=== PATIENT | female | born 1970 | race Caucasian/White ===

== ENCOUNTER 2024-09-02 19:27 | Emergency (ER) | payer BC ==
[~2024-09-02] VITALS: Ht 175.3 cm; Wt 90.7 kg
--- NOTE | 2024-09-02 19:40 | ERN ---
ED Note History of Present Illness Stated Complaint: ALLERGIC REACTION,SOB Chief Complaint: Allergic Reaction Time Seen by MD: 19:35 Dictation: PATIENT IS A 54-YEAR-OLD COMING IN TODAY WITH DIARRHEA CRAMPING AND STATES SHE IS HAVING A AN ALLERGIC REACTION TO MACROB[facility] THAT SHE WAS PRESCRIBED ON A TELE HEALTH VISIT THIS AFTERNOON FOR URINARY TRACT INFECTION. NO RASH NO SHORTNESS A BREATH AND NO ANGIOEDEMA. Allergies: Coded Allergies: tetracycline (Unverified Allergy, Unknown, 07/31/24) Past Medical History Past Medical History: GERD, Kidney Stone, Migraines Additional Past Medical Hx: MITRAL VALVE PROLAPSE NO SX Surgical History: BTL History: Not Applicable RN Note Reviewed/Agreed w/PFSH: Yes Review of System Dictation CONSTITUTIONAL: NEGATIVE EXCEPT FOR HPI HEAD/FACE: NEGATIVE EXCEPT FOR HPI EENT: NEGATIVE EXCEPT FOR HPI RESPIRATORY: NEGATIVE EXCEPT FOR HPI GASTROINTESTINAL/ABDOMINAL: NEGATIVE EXCEPT FOR HPI DIARRHEA GENITOURINARY: NEGATIVE EXCEPT FOR HPI MUSCULOSKELETAL: NEGATIVE EXCEPT FOR HPI INTEGUMENTARY: NEGATIVE EXCEPT FOR HPI NEUROLOGICAL/PSYCH: NEGATIVE EXCEPT FOR HPI HEMATOLOGIC/LYMPHATIC: NEGATIVE EXCEPT FOR HPI ALL SYSTEMS NEGATIVE, EXCEPT NOTED ABOVE. 13 POINT REVIEW OF SYSTEMS ASSESSED AND ALL NEGATIVE EXCEPT FOR ABOVE. Initial Vital Sign VS Vital Signs Date Time Temp Pulse Resp B/P (MAP) Pulse Ox O2 Delivery O2 Flow Rate FiO2 09/02/24 19:29 28 Room Air 09/02/24 21:00 98.4 69 100 0 21 Physical Exam Dictation VITAL SIGNS REVIEWED GENERAL APPEARANCE: ALERT, ORIENTED X 3, ANXIOUS ACUTE DISTRESS, WELL DEVELOPED, NOURISHED. HEAD AND FACE: NON-TRAUMATIC. EYES: PERRL, PINK CONJUNCTIVAS, EYELID NO TRAUMA, ANTERIOR CHAMBER WITH ARCUS SENILIS. EARS: PINNAS INTACT AND NO SIGNS OF TRAUMA OR ERYTHEMA EAR CANALS CLEAR AND NO DISCHARGE TM NO ERYTHEMA NOSE: NO DISCHARGE, NO BLEEDING. OROPHARYNX: MOUTH NORMAL, TONGUE PINK, VOICE IS CLEAR NO ANGIOEDEMA PHARYNX CLEAR,NO ERYTHEMA, TONSILS NO EXUDATES, NO ABSCESSES NOTED, MUCOUS MEMBRANE MOIST NECK: SUPPLE, NON-TENDER, NO THYROMEGALY, NO MASSES, NO JVD, NO BRUITS BREAST:DEFERRED CHEST:NO TENDERNESS, NO CREPITUS, NO PARADOXICAL MOVEMENT, NO RETRACTIONS LUNGS:CLEAR, WELL-VENTILATED, SYMMETRIC, NO RALES, NO WHEEZING, NO RHONCHI, NO STRIDOR, GOOD BREATH SOUNDS BILATERALLY HEART: REGULAR RATE, REGULAR RHYTHM, NO MURMUR, NO GALLOPS VASCULAR: NO PERIPHERAL EDEMA, ABDOMEN: SOFT, POSITIVE BOWEL SOUNDS, NONDISTENDED, NO GUARDING, NONTENDER, NO REBOUND, NO MASSES NO HEPATOMEGALY, NO SPLENOMEGALY, NO JURADO'S SIGN, NO HERNIAS. RECTAL: DEFERRED GENITAL: DEFERRED NEUROLOGICAL: NORMAL SPEECH, MOTOR FUNCTION INTACT, SENSORY FUNCTION INTACT MUSCULOSKELETAL: NECK NONTENDER, FULL RANGE OF MOTION, BACK NONTENDER, FULL RANGE OF MOTION, EXTREMITIES: NONTENDER, FULL RANGE OF MOTION SKIN: COLOR PINK, DRY, NO TURGOR, NO RASH, NO LACERATIONS, NO ABRASIONS, NO CONTUSIONS. LYMPHATIC: DEFERRED Results (Laboratory/Radiology) Laboratory/Radiology Laboratory Tests Test 09/02/24 19:55 White Blood Count 9.9 K/uL (4.8-10.8) Red Blood Count 4.93 MIL/uL (4.00-5.50) Hemoglobin 14.4 g/dL (12.0-16.0) Hematocrit 43.5 % (36-48) Mean Corpuscular Volume 88.2 fL (79-99) Mean Corpuscular Hemoglobin 29.2 pg (27.0-33.0) Mean Corpuscular Hemoglobin Concent 33.1 g/dL (32.0-36.0) Red Cell Distribution Width 12.8 % (11.0-15.5) Platelet Count 222 K/uL (130-400) Mean Platelet Volume 11.2 fL (7.5-10.5) H Immature Granulocyte % (Auto) 0.5 % (0-1) Neutrophils (%) (Auto) 42.8 % (40.0-77.0) Lymphocytes (%) (Auto) 49.7 % (21.0-51.0) Monocytes (%) (Auto) 5.9 % (3.0-13.0) Eosinophils (%) (Auto) 0.7 % (0.0-8.0) Basophils (%) (Auto) 0.4 % (0.0-5.0) Neutrophils # (Auto) 4.2 K/uL (1.8-7.7) Lymphocytes # (Auto) 4.9 K/uL (1.0-4.8) H Monocytes # (Auto) 0.6 K/uL (0.1-1.0) Eosinophils # (Auto) 0.07 K/uL (0.00-0.70) Basophils # (Auto) 0.04 K/uL (0.00-0.20) Absolute Immature Granulocyte (auto 0.05 K/uL (0-1) Nucleated Red Blood Cells 0.0 % (0.0-0.19) Sodium Level 136 mmol/L (136-145) Potassium Level 3.4 mmol/L (3.5-5.1) L Chloride Level 102 mmol/L (101-111) Carbon Dioxide Level 22 mmol/L (21-32) Blood Urea Nitrogen 15 mg/dL (7-18) Creatinine 1.0 mg/dL (0.5-1.0) Glomerular Filtration Rate Calc 67 mL/min (>90) Random Glucose 147 mg/dL (70-105) H Total Calcium 8.7 mg/dL (8.5-10.1) Labs Reviewed?: Yes ED Course ED Course Orders Procedure Category Date Status Time Cbc With Differential LAB 09/02/24 Complete 19:35 Urinalysis Profile LAB 09/02/24 Logged 19:35 Basic Metabolic Panel LAB 09/02/24 Complete 19:35 0.9%Nacl 1000ml (Ns PHA 09/02/24 Complete 1000ml) 20:00 Ketorolac PHA 09/02/24 Complete Tromethamine 30mg/Ml 20:00 Ondansetron 4mg Inj PHA 09/02/24 Complete (Zofran 4mg Inj) 20:00 Famotidine 20mg Vial PHA 09/02/24 Complete (Pepcid 20mg Vial) 20:00 Methylprednisolone PHA 09/02/24 Complete Succ 125mg (Solu-Medr 20:00 Diphenhydramine Hcl PHA 09/02/24 Complete (Benadryl Inj) 20:00 Current Medications Medications (Trade) Dose Ordered Sig/Alisha Route PRN Reason Start Time Stop Time Status Last Admin Dose Admin Diphenhydramine HCl (BENAdryl INJ) 25 mg ONCE ONCE IV 09/02/24 20:00 09/02/24 20:01 DC 09/02/24 20:04 Famotidine (Pepcid 20mg Vial) 20 mg ONCE ONCE IV 09/02/24 20:00 09/02/24 20:01 DC 09/02/24 20:04 Ketorolac Tromethamine (toRADol) 30 mg ONCE ONCE IVP 09/02/24 20:00 09/02/24 19:58 DC 09/02/24 19:57 Methylprednisolone Sodium Succinate (Solu-medROL 125MG) 125 mg ONCE ONCE IVP 09/02/24 20:00 09/02/24 20:01 DC 09/02/24 20:04 Ondansetron HCl (zoFRAN 4MG INJ) 4 mg ONCE ONCE IVP 09/02/24 20:00 09/02/24 20:01 DC 09/02/24 19:47 Sodium Chloride 1,000 ml @ 0 mls/hr ONCE ONCE IV 09/02/24 20:00 09/02/24 20:01 DC 09/02/24 19:46 Vital Signs Date Time Temp Pulse Resp B/P (MAP) Pulse Ox O2 Delivery O2 Flow Rate FiO2 09/02/24 21:00 98.4 69 18 139/59 100 Room Air* 0 21 09/02/24 19:29 28 Room Air 2107 PATIENT STATES SHE FEELS MARKEDLY IMPROVED AFTER FLUIDS AND TREATMENT FOR ALLERGIC REACTION PATIENT DISCHARGED HOME WITH TO FOLLOW UP WITH HER PRIMARY CARE DOCTOR TOMORROW. TOLD TO STOP USING MACROB[facility] Medical Decision Making MDM MEDICAL DISCHARGE MAKING BASED ON BASIC LABS AND TREATMENT FOR PROBABLE MEDICATION ALLERGY REACTION. PATIENT FEELS MARKEDLY IMPROVED AFTER TREATMENT. RASHES RESOLVED, NO PRURITUS NO ANGIOEDEMA DISCHARGED HOME WITH HER . DX & DISP Disposition: Discharge Departure Impression: Primary Impression: Acute allergic reaction Additional Impression: Urticarial rash Condition: Stable Additional Instructions: DIS FOLLOW-UP WITH PRIMARY CARE PROVIDER IN 1 TO 2 DAYS. TAKE MEDICATIONS DIRECTED HERE IN THE EMERGENCY ROOM. OKAY TO CONTINUE HOME MEDICATIONS UNLESS OTHERWISE DISCUSSED DURING YOUR VISIT IN THE EMERGENCY ROOM TODAY. RETURN TO YOUR NEAREST EMERGENCY ROOM IF SYMPTOMS WORSEN OR IF THERE IS NO IMPROVEMENT. CALL 911 IF YOU NEED IMMEDIATE ASSISTANCE. TAKE TYLENOL OR MOTRIN [id number] NEEDED AND IF NO CONTRAINDICATIONS ARE PRESENT. INCREASE ORAL HYDRATION. A WOUND CULTURE OR URINE CULTURE WAS ORDERED HERE IN THE EMERGENCY ROOM DEPARTMENT PLEASE FOLLOW-UP WITH PRIMARY CARE PROVIDER AND ADVISE THEM TO GET REPEAT PORTS FROM OUR FACILITY. IF YOU HAD ANY ABDON WRAP/SPLINTS THAT WERE APPLIED HERE, PLEASE DO NOT REMOVE THEM UNTIL YOU SEE YOUR PRIMARY CARE OR SPECIALTY. STOP USING MACROBID FROM YOUR TELE HEALTH VISIT TODAY. INCREASE FLUIDS AND SEE YOUR PRIMARY CARE DOCTOR IN THE MORNING FOR FOLLOW UP AND TREATMENT. SUGGEST BENADRYL 50 MG/[id number] EVERY 6 HOURS FOR TWO MORE DOSES STARTING IN THE MORNING. Referrals: AMBER URRUTIA MD (PCP) Time of Disposition: 21:09 I have reviewed the case, and I agree with, Diagnosis and Plan ROBI BAUTISTA NP Sep 02, 2024 19:40
[2024-09-02] MEDS: 0.9%NACL 1000ML 1,000 ML IV ONE (19:46)
[2024-09-02] MEDS: ondanSETRON 4MG INJ IVP ONE (19:47)
[2024-09-02] MEDS: ketOROlac 30MG VIAL (30MG/ML) IVP ONE (19:57)
[2024-09-02] MEDS: FAMOTIDINE 20MG VIAL IV ONE (20:04)
[2024-09-02] MEDS: DiphenhydrAMINE HCL 50 MG/ML VIAL IV ONE (20:04)
[2024-09-02] MEDS: Solu-medROL 125MG VIAL IVP ONE (20:04)
[2024-09-02 20:07] LABS: BASOPHILS # (AUTO) 0.04 K/uL (0.00-0.20); BASOPHILS % (AUTO) 0.4 % (0.0-5.0); EOSINOPHILS # (AUTO) 0.07 K/uL (0.00-0.70); EOSINOPHILS % (AUTO) 0.7 % (0.0-8.0); HEMATOCRIT 43.5 % (36-48); IMMATURE GRANULOCYTE ABSOLUTE 0.05 K/uL (0-1); LYMPHOCYTES # (AUTO) 4.9 K/uL (1.0-4.8); LYMPHOCYTES % (AUTO) 49.7 % (21.0-51.0); MEAN CORPUSCULAR HEMOGLOBIN 29.2 pg (27.0-33.0); MEAN CORPUSCULAR HGB CONC 33.1 g/dL (32.0-36.0); MEAN CORPUSCULAR VOLUME 88.2 fL (79-99); MONOCYTES # (AUTO) 0.6 K/uL (0.1-1.0); MONOCYTES % (AUTO) 5.9 % (3.0-13.0); NEUTROPHILS # (AUTO) 4.2 K/uL (1.8-7.7); NEUTROPHILS % (AUTO) 42.8 % (40.0-77.0); PLATELET COUNT (AUTO) 222 K/uL (130-400); RED BLOOD CELL COUNT(AUTO) 4.93 MIL/uL (4.00-5.50); RED CELL DISTRIBUTION WIDTH 12.8 % (11.0-15.5); WHITE BLOOD COUNT (AUTO) 9.9 K/uL (4.8-10.8)
[2024-09-02 20:16] LABS: POTASSIUM 3.4 mmol/L (3.5-5.1)
[2024-09-02 21:35] VITALS: BP 137/60; PULSE 69; RESP 18; TEMP 98.4; O2SAT 97
[2024-09-02 21:36] LABS: APPEARANCE,URINE CLOUDY (CLEAR); BILIRUBIN,URINE NEGATIVE (NEGATIVE); COLOR,URINE YELLOW (YELLOW); GLUCOSE, URINE (UA) NEGATIVE (NEGATIVE); KETONES,URINE NEGATIVE (NEGATIVE); LEUKOCYTE ESTERASE ,URINE 250 Leu/uL (NEGATIVE); NITRATE,URINE NEGATIVE (NEGATIVE); OCCULT BLOOD,URINE NEGATIVE (NEGATIVE); PH,URINE 5.5 (5.0-8.0); PROTEIN,URINE 10 mg/dL (NEGATIVE); UROBILINOGEN,URINE 0.2 mg/dL (0.2-1.0)
[2024-09-02 21:37] LABS: ADD UA MICROSCOPIC YES
[2024-09-02 21:38] LABS: MUCUS,URINE RARE LPF (None Seen); OTHER CASTS, URINE 10 /LPF (None Seen); SQUAMOUS EPITHELIAL CELL,UR MOD /HPF (0-2)
== END 2024-09-02 21:36 | disposition home or self-care (01) ==
LOC: EDH 19:27
DX: L50.9 Urticaria, unspecified (principal); T37.8X5A Adverse effect of other specified systemic anti-infectives and antiparasitics, initial encounter; R19.7 Diarrhea, unspecified; R10.9 Unspecified abdominal pain; K21.9 Gastro-esophageal reflux disease without esophagitis; G43.909 Migraine, unspecified, not intractable, without status migrainosus; Z87.442 Personal history of urinary calculi; Z88.1 Allergy status to other antibiotic agents; Z98.51 Tubal ligation status; Y92.89 Other specified places as the place of occurrence of the external cause
CPT/HCPCS: 99284; 96374; 96375 ×2; 80048; 85025; 87086; 81001; 36415; J1885; J2919; J1200; J3490; J7030; J2405